=== PATIENT | female | born 1955 | race Caucasian/White ===

== ENCOUNTER → 2016-05-18 | Outpatient (CLI) | payer OTHER ==
[~2016-05-18] MED LIST: CALCTAB5 PO; FLUO40CA8 PO; LRT5 PO
--- NOTE | 2016-05-19 12:32 | MAMMOGRAPHY REPORT ---
BILATERAL DIGITAL SCREENING MAMMOGRAM TOMOSYNTHESIS WITH CAD: 05/18/2016 CLINICAL HISTORY: Routine screening. Patient has no complaints. TECHNIQUE: Breast tomosynthesis in addition to standard 2D mammography was performed. Current study was also evaluated with a Computer Aided Detection (CAD) system. COMPARISON: Comparison is made to exams dated: 03/12/2015 mammogram, 02/27/2014 mammogram, 3 mammogram, 02/15/2013 mammogram, 12/23/2011 mammogram, and 07/01/2010 mammogram - [facility]. BREAST COMPOSITION: The tissue of both breasts is almost entirely fatty. FINDINGS: The grouped coarse heterogeneous microcalcifications in the upper outer far posterior left breast have coarsened comparing back to the 2011 mammogram, confirming benignity. No new suspiciou s mass, architectural distortion or cluster of microcalcifications is seen. IMPRESSION: ACR BI-RADS CATEGORY 1: NEGATIVE There is no mammographic evidence of malignancy. A 1 year screening mammogram is recommended. The p atient will receive written notification of the results. Approximately 10% of breast cancers are not detected with mammography. A negative mammographic repor t should not delay biopsy if a clinically suggestive mass is present. Maeve Liz M.D. ay/:05/18/2016 16:17:52 Oyster Picker: Rhiannon MAX)([place]), [facility] letter sent: Normal 1/2 BI-RADS Code: ACR BI-RADS Category 1: Negative
== END | disposition home or self-care (01) ==
LOC: C.MAMM 12:38
PROVIDERS: ATTEND Family Medicine
DX: Z12.31 Encounter for screening mammogram for malignant neoplasm of breast (principal)

== ENCOUNTER → 2017-06-16 | Outpatient (CLI) | payer OTHER ==
--- NOTE | 2017-06-16 15:05 | MAMMOGRAPHY REPORT ---
BILATERAL DIGITAL SCREENING MAMMOGRAM TOMOSYNTHESIS WITH CAD: 06/16/2017 CLINICAL HISTORY: Routine screening. Patient has no complaints. TECHNIQUE: Breast tomosynthesis in addition to standard 2D mammography was performed. Current study was also evaluated with a Computer Aided Detection (CAD) system. COMPARISON: Comparison is made to exams dated: 05/18/2016 mammogram, 03/12/2015 ultrasound, 03/12/2015 m ammogram, 02/27/2014 mammogram, 02/23/2013 mammogram, and 02/15/2013 mammogram - [facility]. BREAST COMPOSITION: The tissue of both breasts is almost entirely fatty. FINDINGS: No suspicious masses, calcifications, or areas of architectural distortion are noted in ei ther breast. There has been no significant interval change compared to prior exams. Small cluster of benign-appearing calcifications in the left superior posterior breast is not significantly changed d ating back to the 2014 exam. IMPRESSION: ACR BI-RADS CATEGORY 2: BENIGN There is no mammographic evidence of malignancy. A 1 year screening mammogram is recommended. The pa tient will receive written notification of the results. Approximately 10% of breast cancers are not detected with mammography. A negative mammographic report should not delay biopsy if a clinically suggestive mass is present. Elva Hernandez M.D. ah/:06/16/2017 13:53:12 Vice President Of Recruiting: Jewell Souza, [facility] letter sent: Normal 1/2 BI-RADS Code: ACR BI-RADS Category 2: Benign
== END | disposition home or self-care (01) ==
LOC: C.MAMM 13:18
PROVIDERS: ATTEND Family Medicine
DX: Z12.31 Encounter for screening mammogram for malignant neoplasm of breast (principal)

== ENCOUNTER 2023-01-24 05:06 | Observation (INO) ==
--- NOTE | 2022-12-20 13:03 | PAT Medication Instructions ---
Medication Instructions Date of Service December 20, 2022 Home Medications atorvastatin 20 mg tablet 20 mg PO QAM bupropion HCl 75 mg tablet 75 mg PO QAM calcium carbonate 500 mg-vitamin D3 3.125 mcg (125 unit) tablet 1 tab PO BID cetirizine 10 mg tablet 10 mg PO QAM cholecalciferol (vitamin D3) 125 mcg (5,000 unit) tablet (Vitamin D3) 125 mcg PO QAM fluoxetine 40 mg capsule 40 mg PO QAM multivitamin 1 tab PO QAM pantoprazole 40 mg tablet,delayed release 40 mg PO QAM DO NOT take the morning of surgery calcium carbonate 500 mg-vitamin D3 3.125 mcg (125 unit) tablet 1 tab PO BID cetirizine 10 mg tablet 10 mg PO QAM cholecalciferol (vitamin D3) 125 mcg (5,000 unit) tablet (Vitamin D3) 125 mcg PO QAM multivitamin 1 tab PO QAM Take morning of surgery With a small sip of water, OTHERWISE NOTHING TO EAT OR DRINK AFTER MIDNIGHT: atorvastatin 20 mg tablet 20 mg PO QAM bupropion HCl 75 mg tablet 75 mg PO QAM fluoxetine 40 mg capsule 40 mg PO QAM pantoprazole 40 mg tablet,delayed release 40 mg PO QAM Take evening before surgery calcium carbonate 500 mg-vitamin D3 3.125 mcg (125 unit) tablet 1 tab PO BID Other Notes If you have any questions please call us at [phone] or [phone] or [phone] or [phone]
--- NOTE | 2022-12-22 11:11 | Anesthesiology Consultation ---
Date of Service December 22, 2022 Assessment & Plan (1) Encounter for pre-operative examination: Chart Review Chart Review: Acceptable Risk for Surgery and Patient seen in Pre Admission Testing Pt currently scheduled as 23 hours observation. If surgeon decides to change patient to Same Day Joint, patient would be acceptable risk for TKA, pending patient is motivated, has good support and surgeon's office completes Same Day Joint Program preop requirements. Per PAT appt on 12/22/22, no recent illness/disease exposures, illness related symptoms, or recent illness/disease positive tests. Will leave to surgeon's discretion if preop Covid testing needed History Surgery Operation Date: 01/10/23 08:10 Proposed Procedures p Right Total Knee Arthroplasty - Sheldon Vidal, Height/Weight Height: 5 ft 5 in Weight: 86 kg Allergies Allergy/AdvReac Type Severity Reaction Status Date / Time No Known Allergies Allergy Unknown Verified 12/16/22 11:03 Medications Home Medications Medication Instructions Recorded Confirmed Last Taken atorvastatin 20 mg tablet 20 mg PO QAM 12/16/22 12/16/22 Unknown bupropion HCl 75 mg tablet 75 mg PO QAM 12/16/22 12/16/22 Unknown calcium carbonate 500 mg-vitamin 1 tab PO BID 12/16/22 12/16/22 Unknown D3 3.125 mcg (125 unit) tablet cetirizine 10 mg tablet 10 mg PO QAM 12/16/22 12/16/22 Unknown cholecalciferol (vitamin D3) 125 125 mcg PO QAM 12/16/22 12/16/22 Unknown mcg (5,000 unit) tablet (Vitamin D3) fluoxetine 40 mg capsule 40 mg PO QAM 12/16/22 12/16/22 Unknown multivitamin 1 tab PO QAM 12/16/22 12/16/22 Unknown pantoprazole 40 mg tablet,delayed 40 mg PO QAM 12/16/22 12/16/22 Unknown release Past Medical History Medical History (Updated 12/22/22 @ 20:30 by Loly Jimenez PA-C) Depression History of kidney stones No recent issues HLD (hyperlipidemia) Osteoarthritis PONV (postoperative nausea and vomiting) Severe PONV with 2004 lithotripsy- scop patch used with subsequent surgery with good control of PONV Sleep apnea CPAP Exercise / Class Metabolic Activity II 4-5 Yardwork/Stairs/Walk up hill (one flight of stairs - no chest pain or SOB ) Past Family History Family History Other No family history of adverse response to anesthesia Past Surgical History Surgical History H/O gastric sleeve 07/2022 [facility] [place] History of colonoscopy History of esophagogastroduodenoscopy (EGD) History of lithotripsy History of umbilical hernia repair at age 4 mo Intussusception intestine hx surgical repair at age 12. Past Anesthesia History No Hx of Anesthesia Complications (with exception to lithotripsy in 2004 - severe PONV - had scop patch with gastric sleeve in 07/2022- had no issues with PONV; no issues with scop patch ) and No Family Hx of Anesthesia Complications History of PONV No Hx of Motion Sickness and History of PONV (with 2004 lithotripsy- severe PONV - scop patch ordered for upcoming TKA per patient request ) Social History Smoking Status: Never smoker Do You Dip or Chew Tobacco: No Hx Alcohol Use: Yes alcohol intake frequency: holidays/special occasions only Hx Substance Use: No substance use type: does not use Review of Systems Patient denies chest pain, shortness of breath, dyspnea on exertion, reflux, cough, wheezing, palpitations. No hx of seizures, stroke, NC. No hx of blood clots or blood transfusions Physical Exam Vital Signs VITALS BP 108/73 P 75 TEMP 98.3 SP02 97% RESP 16 Constitutional no acute distress ENMT Mouth: + small oral opening; no TMJ clicking Thyromental Distance: < 3.5 Finger Breadths (3.0) Mallampati Class: III Permanent bridge to side teeth Crowns to molars and side teeth Neck neck extension not limited Respiratory normal respiratory effort; no respiratory distress Auscultation: lungs clear to auscultation bilaterally; no wheezes Cardiovascular Rate/Rhythm: regular rate and regular rhythm Heart Sounds: no murmur Vessels: no carotid bruit Musculoskeletal Spine: no pain with cervical ROM Extremities: extremities normal to inspection Psychiatric Orientation: alert Lab Results Anesthesia Preop Results Results Anesthesia Widget: WBC 7.30 K/ul (4.8-10.8) 12/22/22 Hgb 13.6 g/dl (12.0-16.0) 12/22/22 Hct 40.5 % (37.0-47.0) 12/22/22 Plt 243 K/uL (130-400) 12/22/22 Na 140 mmol/L (136-145) 12/22/22 K 4.9 mmol/L (3.5-5.1) 12/22/22 Cl 104 mmol/L (98-107) 12/22/22 CO2 29 mmol/L (21-32) 12/22/22 BUN 16 mg/dl (6-23) 12/22/22 Creat 0.82 mg/dl (0.6-1.2) 12/22/22 Glucose Level 92 mg/dl (70-99(Fasting)) 12/22/22 PT 11.3 Seconds (9.0-12.0) 12/22/22 PTT 26.8 Seconds (21.0-31.0) 12/22/22 INR 1.0 (0.9-1.1) 12/22/22 Blood Type A Positive 12/22/22 Antibody Screen NEGATIVE 12/22/22 Testing Electrocardiogram Date: 06/25/22 Findings: + NSR @ (78bpm ) Normal EKG per cardio Chest X-Ray Date: 06/25/22 Findings: + NAD FINDINGS: Cardiac mediastinal and hilar silhouettes are within normal limits. Atherosclerosis of the aorta. No pneumothorax, pleural effusion, airspace consolidation or pulmonary edema. Bones appear grossly intact
--- NOTE | 2023-01-06 11:38 | History & Physical Report ---
Date of Service January 06, 2023 Assessment & Plan (1) Right knee DJD: We will proceed with a right total knee arthroplasty. Postoperatively she will be started on aspirin for DVT prophylaxis and kept overnight in the hospital for postop medical management. She plans to use [facility] upon disch arge. History of Present Illness Chief Complaint: Osteoarthritis of the right knee. Primary Care Provider: Keke Haskins DO Patricia is a pleasant 67-year-old female who has been dealing with chronic increasing right knee pain. X-rays have been diagnostic for worsening medial compartmental arthritis of the right knee. She has been seeing Dr. Real who has tried injections of her knee. The injections do not help it anymore. She is really struggling. It is keeping her from doing activities she enjoys. After failing conservative treatment, she has elected proceed with a right total knee arthroplasty. Allergies Allergy/AdvReac Type Severity Reaction Status Date / Time No Known Allergies Allergy Unknown Verified 12/16/22 11:03 Home Medications Medication Instructions Recorded Confirmed Type atorvastatin 20 mg tablet 20 mg PO QAM 12/16/22 12/16/22 History bupropion HCl 75 mg tablet 75 mg PO QAM 12/16/22 12/16/22 History calcium carbonate 500 mg-vitamin 1 tab PO BID 12/16/22 12/16/22 History D3 3.125 mcg (125 unit) tablet cetirizine 10 mg tablet 10 mg PO QAM 12/16/22 12/16/22 History cholecalciferol (vitamin D3) 125 125 mcg PO QAM 12/16/22 12/16/22 History mcg (5,000 unit) tablet (Vitamin D3) fluoxetine 40 mg capsule 40 mg PO QAM 12/16/22 12/16/22 History multivitamin 1 tab PO QAM 12/16/22 12/16/22 History pantoprazole 40 mg tablet,delayed 40 mg PO QAM 12/16/22 12/16/22 History release Past Med/Surg History Medical History Depression History of kidney stones No recent issues HLD (hyperlipidemia) Osteoarthritis PONV (postoperative nausea and vomiting) Severe PONV with 2005 lithotripsy- scop patch used with subsequent surgery with good control of PONV Sleep apnea CPAP Surgical History H/O gastric sleeve 07/2022 [facility] [place] History of colonoscopy History of esophagogastroduodenoscopy (EGD) History of lithotripsy History of umbilical hernia repair at age 4 mo Intussusception intestine hx surgical repair at age 12. Family History Other No family history of adverse response to anesthesia Social History Smoking Status: Never smoker Second Hand Exposure: No; Do You Dip or Chew Tobacco: No; Hx Alcohol Use: Yes Hx Substance Use: No Preferred Language: Burkinan Communication Ability: Effective Service Assistant Required: No Beliefs That Will Affect Care: None Current Living Situation: Spouse Feels Safe at Home: Yes Assistive Devices: Glasses Review of Systems All systems reviewed & are unremarkable except as noted in HPI & below. Physical Exam Physical examination of the right knee shows a slight varus deformity. She is range of motion 0 to 120 degrees. She has pain of the distal medial femoral condyle and of the medial joint line.. Constitutional WD/WN, vitals as above Eyes PERRL, conjunctivae normal, anicteric sclerae ENMT external ear and nose normal, oropharynx normal Neck trachea midline, no thyromegaly Respiratory normal respiratory effort, lungs clear to auscultation Cardiovascular RRR, no murmur, no edema Gastrointestinal (Abdomen) normal bowel sounds, soft, nontender, no hepatosplenomegaly Skin no rashes, warm and dry Psychiatric A+Ox3, euthymic affect Results & Data Results & Data Laboratory Results . Diagnostic Findings X-rays of the right knee show advanced osteoarthritis with joint space narrowing, osteophyte formation, and [id number] tubulation. PG Care Time/CCT Total # of Minutes Spent Total Time Spent with Patient: Total time spent is greater than 50% in coordination of care (as documented) at patient's floor/unit and/or counseling patient: Coding Level of Care Code None Diagnoses Right knee DJD M17.11
--- NOTE | 2023-01-20 08:06 | History & Physical Report ---
Date of Service January 20, 2023 Assessment & Plan (1) Right knee DJD: We will proceed with a right total knee arthroplasty. Postoperatively she will be started on aspirin for DVT prophylaxis and kept overnight in the hospital for postop medical management. She plans to go have [facility] to her use upon discharge. History of Present Illness Chief Complaint: Osteoarthritis of the right knee. Primary Care Provider: Keke Haskins DO Patricia is a pleasant 67-year-old female who has been dealing with chronic increasing right knee pain. X-rays have been diagnostic for worsening medial compartmental arthritis of the right knee. She has been seeing Dr. Real who has tried injections of her knee. The injections do not help it anymore. She is really struggling. It is keeping her from doing activities she enjoys. After failing conservative treatment, she is elected proceed with a right total knee arthroplasty. Allergies Allergy/AdvReac Type Severity Reaction Status Date / Time No Known Allergies Allergy Unknown Verified 12/16/22 11:03 Home Medications Medication Instructions Recorded Confirmed Type atorvastatin 20 mg tablet 20 mg PO QAM 12/16/22 12/16/22 History bupropion HCl 75 mg tablet 75 mg PO QAM 12/16/22 12/16/22 History calcium carbonate 500 mg-vitamin 1 tab PO BID 12/16/22 12/16/22 History D3 3.125 mcg (125 unit) tablet cetirizine 10 mg tablet 10 mg PO QAM 12/16/22 12/16/22 History cholecalciferol (vitamin D3) 125 125 mcg PO QAM 12/16/22 12/16/22 History mcg (5,000 unit) tablet (Vitamin D3) fluoxetine 40 mg capsule 40 mg PO QAM 12/16/22 12/16/22 History multivitamin 1 tab PO QAM 12/16/22 12/16/22 History pantoprazole 40 mg tablet,delayed 40 mg PO QAM 12/16/22 12/16/22 History release Past Med/Surg History Medical History Depression History of kidney stones No recent issues HLD (hyperlipidemia) Osteoarthritis PONV (postoperative nausea and vomiting) Severe PONV with 2005 lithotripsy- scop patch used with subsequent surgery with good control of PONV Sleep apnea CPAP Surgical History H/O gastric sleeve 07/2022 [facility] [place] History of colonoscopy History of esophagogastroduodenoscopy (EGD) History of lithotripsy History of umbilical hernia repair at age 4 mo Intussusception intestine hx surgical repair at age 12. Family History Other No family history of adverse response to anesthesia Social History Smoking Status: Never smoker Second Hand Exposure: No; Do You Dip or Chew Tobacco: No; Hx Alcohol Use: Yes Hx Substance Use: No Preferred Language: Khmer Communication Ability: Effective Safety Assistant Required: No Beliefs That Will Affect Care: None Current Living Situation: Spouse Feels Safe at Home: Yes Assistive Devices: Glasses Review of Systems All systems reviewed & are unremarkable except as noted in HPI & below. Physical Exam On physical examination the right knee, she has tenderness palpation of the distal medial femoral condyle and over the medial joint line. She has good range of motion from 0 to 120 degrees.. Constitutional WD/WN, vitals as above Eyes PERRL, conjunctivae normal, anicteric sclerae ENMT external ear and nose normal, oropharynx normal Neck trachea midline, no thyromegaly Respiratory normal respiratory effort, lungs clear to auscultation Cardiovascular RRR, no murmur, no edema Gastrointestinal (Abdomen) normal bowel sounds, soft, nontender, no hepatosplenomegaly Skin no rashes, warm and dry Psychiatric A+Ox3, euthymic affect Results & Data Results & Data Laboratory Results . Diagnostic Findings X-rays of the right knee show advanced osteoarthritis with joint space narrowing, osteophyte formation, and [id number] tubulation. PG Care Time/CCT Total # of Minutes Spent Total Time Spent with Patient: Total time spent is greater than 50% in coordination of care (as documented) at patient's floor/unit and/or counseling patient: Coding Level of Care Code None Diagnoses Right knee DJD M17.11
[~2023-01-24 05:06] MED LIST changes: +ACETAMINOPHEN 500 MG TAB PO SCH; -CALCTAB5 PO; +FAMOTIDINE 20 MG TAB PO SCH; -FLUO40CA8 PO; +GABAPENTIN 300 MG CAP PO SCH; +LR 500ML BOLUS, THEN 15ML/HR IV SCH; +LR 60ML/HR IV SCH; -LRT5 PO; +ORTHO JOINT MIX INFIL SCH; +TRANEXAMIC ACID 1,000 MG **IV Intra-op IV SCH; +TRANEXAMIC ACID 1,000 MG **IV Pre-op IV SCH; +ceFAZolin 2000MG 2,000 MG/15 ML SYR IV SCH; +dexAMETHasone 4 MG TAB PO SCH
[2023-01-24] MEDS ORDERED: LR 500ML BOLUS, THEN 15ML/HR IV SCH (06:00)
[2023-01-24] MEDS ORDERED: TRANEXAMIC ACID 1,000 MG **IV Intra-op IV SCH (06:00)
[2023-01-24] MEDS ORDERED: ceFAZolin 2000MG 2,000 MG/15 ML SYR IV SCH (06:00)
[2023-01-24] MEDS ORDERED: Ketorolac (*for OR use only*) 30 MG, dexAMETHasone 4 MG, KETAMINE HCL (**OR use only) 1... INFIL SCH (06:00)
[2023-01-24] MEDS ORDERED: TRANEXAMIC ACID 1,000 MG **IV Pre-op IV SCH (06:00)
[2023-01-24] MEDS ORDERED: FAMOTIDINE 20 MG TAB PO SCH (06:00)
[2023-01-24] MEDS ORDERED: GABAPENTIN 300 MG CAP PO SCH (06:00)
[2023-01-24] MEDS ORDERED: ACETAMINOPHEN 500 MG TAB PO SCH (06:00)
[2023-01-24] MEDS ORDERED: SCOPOLAMINE 1 MG TDSY TD SCH (06:00)
[2023-01-24] MEDS ORDERED: LR 60ML/HR IV SCH (06:00)
[2023-01-24] MEDS ORDERED: dexAMETHasone 4 MG TAB PO SCH (06:00)
[2023-01-24] MEDS ORDERED: MIDAZOLAM HCL 1 MG/ML 2ML VIAL ONE (06:32)
[2023-01-24] MEDS ORDERED: ONDANSETRON INJ 2 MG/ML 2 ML VIAL ONE (06:32)
[2023-01-24] MEDS ORDERED: PROPOFOL IV EMULSION 10 MG/ML 20 ML VIAL IV ONE (06:32)
[2023-01-24] MEDS ORDERED: BUPIVACAINE 0.5 % 5 MG/1 ML PF 10ML VIAL ONE (06:33)
[2023-01-24] MEDS ORDERED: fentaNYL citrate PF 100 MCG/2 ML VIAL ONE (06:33)
[2023-01-24] MEDS ORDERED: ROPIVACAINE 0.5% 5 MG/ML 30 ML VIAL ONE (06:33)
[2023-01-24] MEDS ORDERED: ONDANSETRON INJ 2 MG/ML 2 ML VIAL IV PRN ×2 (06:35→10:22)
[2023-01-24] MEDS ORDERED: fentaNYL citrate PF 100 MCG/2 ML VIAL IV PRN (06:35)
[2023-01-24] MEDS ORDERED: ATROPINE SULFATE 0.1 MG/ML 10ML SYR IV PRN (06:35)
[2023-01-24] MEDS ORDERED: ePHEDrine sulfate 50 MG/ML AMP IV PRN (06:35)
[2023-01-24] MEDS ORDERED: ORTHO JOINT ANESTHETIC ONE (06:38)
--- NOTE | 2023-01-24 06:43 | History & Physical Bridge Note ---
Date of Service January 24, 2023 History & Physical Bridge Note I have examined the patient, reviewed the History & Physical and in the interval since the performance of the History & Physical I have noted the following changes of clinical significance: no changes noted
[2023-01-24] MEDS ORDERED: CHECK SCOPOLAMINE PATCH PLACEMENT SCH (08:00)
--- NOTE | 2023-01-24 08:08 | Operative Report ---
PG Post Operative Report Pre & Post Diagnosis Operation Date: 01/24/23 07:00 Pre-Op Diagnosis: Right Knee Osteoarthritis Post-Op Diagnosis: Right Knee Osteoarthritis I identified the patient and participated in the time-out.: Yes Procedure Operation Date: 01/24/23 07:00 Actual Procedures p Right Total Knee Arthroplasty(Right) - Sheldon Vidal DO Surgeon Sheldon Vidal DO Marine Painter Sheldon Hunter PA-C Estimated Blood Loss 30 Findings Consistent with Post-Op Diagnosis Specimens Right femoral tibial bone Description of Procedure Implants used: I used a Edouard Persona total knee arthroplasty system with a size 8 standard femur, E tibia, 31 oval patella, and a size 12 medial congruent polyethylene bearing. All components were cemented in place with Biomet cement. Patricia arrived [facility] for the above procedure. She was seen in the preoperative holding area and the operative extremity was identified and signed. She was given a preoperative antibiotic, TXA, a spinal anesthetic and an adductor nerve block. She was taken back to the operating room and laid on the table in supine position. She was given basic sedation. The operative knee was then prepped and draped in sterile fashion. A timeout was done, and the patient and the operative extremity was properly identified. A midline incision was made directly over the patella. Dissection was taken down to the extensor mechanism. A midvastus arthrotomy was used. The medial retinaculum was released and the fat pad was mostly excised. The knee was flexed and the ACL, PCL, and meniscus were removed. A drill was sent down the center of the femoral canal followed by an intramedullary amauri. Off that amauri a distal femoral cutting block was placed. 9 mm was resected off the distal femur at 5 of valgus. A posterior referencing AP sizing guide was then placed on the distal femur. The femur measured to be a size 8. 2 drill holes were placed in 3 of external rotation. A 4-in-1 cutting block was then impacted into place. Anterior, posterior, and chamfer cuts were then made. The proximal tibia was then exposed. An external tibial alignment guide was placed. A tibial cut guide was then anchored in place and the proximal tibia was then resected. The posterior aspect of the knee was then opened up and any additional meniscus fragments and osteophytes were removed. The tibia measured to be a size E. The tibial plate was then placed in the appropriate rotation and the tibia was drilled and punched. Trial components were then placed. I used a size 12 medial congruent polyethylene insert. The knee was brought through a full range of motion and felt to be stable. The peg holes for the femoral component were then drilled. The patella was then everted and 9 mm was resected off the posterior aspect of the patella. The patella measured to be a size 31 oval. 3 peg holes were then drilled. A trial patella was placed. The knee was once again brought through a full range of motion and felt to be stable. Trial components were then removed. The surrounding soft tissues were injected with 100 cc of an orthopedic pain control cocktail. All components were then cemented into place with Biomet cement. The final polyethylene insert was then snapped into place. Once cement was dry the tourniquet was deflated. Hemostasis was obtained. A dilute betadyne lavage was then done for 3 minutes. The joint was then irrigated with normal saline solution. The midvastus arthrotomy was then closed with #1 Vicryl suture. The skin was closed with 2-0 Vicryl, 3-0V lock suture, and sathya. A soft compressive dressing was placed. She was then transferred to a hospital bed and taken to the postanesthesia care unit in stable condition. She tolerated the procedure well. Sheldon Hunter PA-C, was present for the entire procedure. He was critical for patient positioning, prepping, draping, retraction exposure, wound closure and application of sterile dressing. I attest to the content of the Intraoperative Record and any orders documented therein. Any exceptions are noted below.
--- NOTE | 2023-01-24 09:39 | XRay Report ---
XR knee RT 1 or 2V routine CLINICAL HISTORY: Surgical Post Op TECHNIQUE: 2 views of the right knee were obtained. Comparison: None available at the time of this dictation. FINDINGS: Patient is status post total knee arthroplasty with expected postsurgical changes including soft tiss ue swelling and subcutaneous emphysema. No periarticular lucency or hardware fracture is seen. IMPRESSION: Expected postoperative appearance status post placement of total knee arthroplasty. ACT 112: Negative or not required by law. Electronically signed by: Pro Hubbard M.D. 01/24/2023 9:37 AM
[2023-01-24] MEDS ORDERED: METOCLOPRAMIDE HCL INJ 5 MG/ML 2 ML VIAL IV PRN (10:22)
[2023-01-24] MEDS ORDERED: NALOXONE HCL 0.4 MG/1 ML VIAL/CARP IV PRN (10:22)
[2023-01-24] MEDS ORDERED: bisacodyL 10 MG SUPP PR PRN (10:22)
[2023-01-24] MEDS ORDERED: MAGNESIUM HYDROXIDE SUSP 30 ML UDC PO PRN (10:22)
[2023-01-24] MEDS ORDERED: HYDROmorphone INJ 0.5 MG/0.5 ML SYR IV PRN (10:22)
[2023-01-24] MEDS ORDERED: oxyCODONE HCL IR 5 MG TAB (IMMEDIATE RELEASE) PO PRN (10:22)
[2023-01-24] MEDS: SODIUM CHLORIDE 0.9% 1,000 ML IV SCH ×2 (10:46→23:09)
--- NOTE | 2023-01-24 11:01 | Anesthesiology Progress Note ---
Date of Service January 24, 2023 Anesthesia Post Procedure Vital Signs Vital Signs: Temp Pulse Pulse Resp BP BP Pulse Ox 01/24/23 10:10 98.1 F 72 16 98/66 L 95 01/24/23 10:38 66 16 96/66 L 94 01/24/23 09:55 68 14 105/81 97 01/24/23 09:45 97.9 F 67 13 110/69 97 01/24/23 09:35 68 15 104/68 97 01/24/23 09:25 66 14 107/68 97 01/24/23 09:15 97.0 F L 66 16 104/67 97 01/24/23 09:05 71 20 115/64 92 01/24/23 08:55 68 19 108/70 97 01/24/23 08:45 62 16 123/75 100 01/24/23 08:35 68 14 108/69 99 01/24/23 08:29 98.1 F 75 12 107/68 96 01/24/23 05:29 01/24/23 05:29 98.2 F 80 18 132/85 96 O2 Del Method O2 Flow Rate 01/24/23 10:10 Room Air 01/24/23 10:38 Room Air 01/24/23 09:55 Nasal Cannula 2 01/24/23 09:45 Nasal Cannula 2 01/24/23 09:35 Nasal Cannula 2 01/24/23 09:25 Nasal Cannula 2 01/24/23 09:15 Nasal Cannula 2 01/24/23 09:05 Room Air 01/24/23 08:55 Oxymask 3 01/24/23 08:45 Oxymask 4 01/24/23 08:35 Oxymask 6 01/24/23 08:29 Oxymask 6 01/24/23 05:29 Room Air, CPAP 01/24/23 05:29 Room Air, CPAP Pain Intensity Right Knee: Pain Intensity: 2 Transfer of Care Handoff Completed per policy Notes Mental Status: alert / awake / arousable and participated in evaluation Patient Amnestic to Procedure: Yes Nausea / Vomiting: adequately controlled Pain: adequately controlled Airway Patency, RR, SpO2: stable & adequate BP & HR: stable & adequate Hydration State: stable & adequate Neuraxial Anesthesia: was administered and sensory block is resolving Anesthetic Complications: no major complications apparent and Pt Satisfied with anesthetic care
[2023-01-24] MEDS: buPROPion HCl 75 MG TABLET PO SCH (12:08)
[2023-01-24] MEDS: CETIRIZINE HCL 10 MG TABLET PO SCH (12:08)
[2023-01-24] MEDS: DOCUSATE SODIUM 100 MG CAP PO SCH ×2 (12:08→20:49)
[2023-01-24] MEDS: MULTIVITAMIN TAB PO SCH (12:08)
[2023-01-24] MEDS: KETOROLAC TROMETHAMINE 15 MG/ML VIAL IV SCH ×3 (12:08→23:03)
[2023-01-24] MEDS: FLUoxetine HCL 20 MG CAP PO SCH (12:08)
[2023-01-24] MEDS: ASPIRIN 81 MG ECTAB PO SCH ×2 (12:08→20:49)
[2023-01-24] MEDS: ATORVASTATIN 20 MG TAB PO SCH (12:09)
[2023-01-24] MEDS: ACETAMINOPHEN 500 MG TAB PO SCH ×2 (13:00→20:50)
[2023-01-24] MEDS: ceFAZolin 2000MG 2,000 MG/15 ML SYR IV SCH ×2 (15:26→23:02)
[2023-01-24] MEDS ORDERED: SENNA 8.6 MG TAB PO SCH (21:00)
[2023-01-25] MEDS: KETOROLAC TROMETHAMINE 15 MG/ML VIAL IV SCH (04:26)
[2023-01-25] MEDS: ACETAMINOPHEN 500 MG TAB PO SCH (04:27)
--- NOTE | 2023-01-25 06:59 | Orthopedic Progress Note ---
Date of Service January 25, 2023 Assessment & Plan (1) Status post right knee replacement: Overall she is doing very well. She is not having much pain in the right knee. She will be seen by physical therapy today for ambulation and range of motion exercises. She is on aspirin for DVT prophylaxis. She can be discharged home later today. She will follow-up orthopedics in 2 weeks. Subjective Lupe was seen and examined at bedside this morning. Overall she is doing very well. She is not having much pain in the right knee. She has been up and ambulating into the hallways. She has no complaints.. Review of Systems All systems reviewed & are unremarkable except as noted in HPI & below. Physical Exam On physical examination of the right knee, the dressing is clean and dry. Her leg is out full extension. She has active dorsiflexion plantarflexion of her right ankle.. Results & Data Results & Data Laboratory Results . Diagnostic Findings Postoperative x-rays of the right knee show the prosthesis to be in anatomic alignment without any evidence of fracture complication, or loosening.. PG Care Time/CCT Total # of Minutes Spent Total Time Spent with Patient: Total time spent is greater than 50% in coordination of care (as documented) at patient's floor/unit and/or counseling patient: Coding Level of Care Code 24546 Post Operative Follow-Up Diagnoses Status post right knee replacement Z96.651
--- NOTE | 2023-01-25 07:00 | Discharge Summary ---
Date of Service January 25, 2023 Admission HPI (Per Admitting) Patricia is a pleasant 67-year-old female who has been dealing with chronic increasing right knee pain. X-rays have been diagnostic for worsening medial compartmental arthritis of the right knee. She has been seeing Dr. Real who has tried injections of her knee. The injections do not help it anymore. She is really struggling. It is keeping her from doing activities she enjoys. After failing conservative treatment, she is elected proceed with a right total knee arthroplasty. Admission Exam (Per Admitting) On physical examination the right knee, she has tenderness palpation of the dis nathan medial femoral condyle and over the medial joint line. She has good range of motion from 0 to 120 degrees.. Principal Diagnosis Same as "Discharge Diagnosis" noted below under Discharge Instructions. Discharge Exam On physical examination of the right knee, the dressing is clean and dry. Her leg is out full extension. She has active dorsiflexion plantarflexion of her right ankle.. Discharge Data Procedures Performed Operation Date: 01/24/23 07:00 Actual Procedures p Right Total Knee Arthroplasty(Right) - Sheldon Vidal DO Ordered Studies 01/24/23 05:00 US - OR guided needle placemen Routine Hospital Course (1) Status post right knee replacement: On January 24, 2023 Lupe arrived at [facility] and underwent a right knee replacement without complication. She had a spinal anesthetic. Postoperatively she was started on aspirin for DVT prophylaxis and transferred to the general orthopedic floors. Her hospital course was uneventful. On postop day #1, her vital signs were stable and her pain was well controlled. She was able to participate well with physical therapy doing ambulation and range of motion exercises. She was then discharged home. She will follow with orthopedics in 2 weeks. PG Care Time/CCT Total # of Minutes Spent Total Time Spent with Patient: Total time spent is greater than 50% in coordination of care (as documented) at patient's floor/unit and/or counseling patient: Discharge Plan Discharge Items Patient Disposition: Home - Home Health Services Reason For Visit: Right Knee Osteoarthritis Discharge Diagnosis: Right knee replacement Activity: Per Instructions section Non-emergency contact: Surgeon Call non-emergency contact if: your wound has increased redness and your wound has increased drainage Follow-up/Referrals: Keke Haskins DO [Primary Care Provider] - Diet: Regular Addtl Attending Provider Instructions: Activity and Therapy Recommendations: * If you are using [facility] then therapy will be provided at your home until they feel you have accomplished all of your goals. * If you are using [facility] then Physical Therapy will be provided until they feel you are ready to start Outpatient Physical Therapy. * If you are not using home therapy then Outpatient Physical Therapy should start about 3-5 days from your day of surgery. Therapy will last about 6-10 weeks * It is important not to put a pillow under your knee when you are relaxing or sleeping. It is just as important to make sure you are getting your knee perfe ctly straight as it is to regain your knee bend. * You were shown a series of exercises in the hospital. Do these exercises three times each day including the exercises you were shown in physical therapy. * Get up and walk several times each day. For the first four weeks, try not to stand or walk for more than one hour at a time. If you do stand or walk for more than one hour, you will not hurt anything, but your leg will likely swell. * As you feel comfortable, you may change from the walker or crutches to a cane and then to independent walking. Medications: * Narcotic You will likely be sent home from the hospital with a prescription for the narcotic pain medication that worked best throughout your stay. * Aspirin Most patients will be required to take Aspirin 81mg twice a day for 6 weeks after surgery. This is obtained [id number] and a prescription is not necessary. * Other medications may be prescribed for specific circumstances. If you have any questions, please call the office at . * Resume previous home medications unless otherwise instructed TEDs/Elastic Stockings: The white elastic stockings help limit swelling and prevent blood clots from forming in your legs.~ The more you wear them, the more they work. Wear them for six weeks. Dressing Care: The dressing can be changed after physical therapy on postop day #1. Daily dry dressing changes for a few days, especially if the incision is still draining some. If the incision is not draining then you may leave the sathya open to air. If there is a little bit of drainage or if the sathya are getting stuck on your clothing then cover the incision with a dry dressing. The sathya will be removed at your 2 week follow-up appointment. Showering: You may shower 5 days from the day of surgery as long as the incision is no longer draining. You may shower with the sathya exposed. Let soapy water run over the sathya and pat them dry. Do not scrub or soak the incision. Things To Watch For: * Drainage from the incision site that occurs more than one week after your surgery. * Increased redness at the incision site. * Fever above 102 degrees Fahrenheit. * Unusual chest pain or shortness of breath. * Call [facility] at with any of the above problems Follow-Up Visit: Follow-up with Dr. Vidal's PA (Sheldon Hunter) 2-3 weeks after your day of surgery. He will remove your sathya and answer any questions. If you have any additional questions or concerns, Dr Vidal is usually in the office at the same time and will be available An appointment was probably scheduled when you signed-up for surgery in the office. If you have any questions call Office Instructions: More detailed instructions as well as Frequently Asked Questions were provided in a folder by our office when you signed-up for surgery. Please review these instructions when you get home. If you have any further questions or concerns, please feel free to call the office at [phone] Pending Studies at Discharge: No Stand-Alone Forms: My [facility], Smoking Cessation Medications and DC Order Prescriptions: New oxycodone 5 mg Tablet 5 mg PO Q4H PRN (Reason: pain) Qty: 30 0RF aspirin 81 mg Tablet,Delayed Release (Dr/Ec) 81 mg PO BID 42 Days Qty: 84 0RF Continued multivitamin Tablet 1 tab PO QAM fluoxetine 40 mg Capsule 40 mg PO QAM atorvastatin 20 mg Tablet 20 mg PO QAM cetirizine 10 mg Tablet 10 mg PO QAM pantoprazole 40 mg Tablet,Delayed Release (Dr/Ec) 40 mg PO QAM bupropion HCl 75 mg Tablet 75 mg PO QAM calcium carbonate-vitamin D3 [Calcium 500 + D (D3)] 500 mg-3.125 mcg (125 unit) Tablet 1 tab PO BID cholecalciferol (vitamin D3) [Vitamin D3] 125 mcg (5,000 unit) Tablet 125 mcg PO QAM Admission Data Admit Date/Time: 01/24/23 08:34 Attending Provider: Sheldon Vidal Admit Provider: Sheldon Vidal Primary Care Provider: Keke Haskins Other Providers: [facility],Home Health
[2023-01-25] MEDS: ASPIRIN 81 MG ECTAB PO SCH (07:43)
[2023-01-25] MEDS: FLUoxetine HCL 20 MG CAP PO SCH (07:43)
[2023-01-25] MEDS: MULTIVITAMIN TAB PO SCH (07:43)
[2023-01-25] MEDS: CETIRIZINE HCL 10 MG TABLET PO SCH (07:44)
[2023-01-25] MEDS: ATORVASTATIN 20 MG TAB PO SCH (07:44)
[2023-01-25] MEDS: buPROPion HCl 75 MG TABLET PO SCH (07:44)
[2023-01-25] MEDS: DOCUSATE SODIUM 100 MG CAP PO SCH (07:44)
[2023-01-25] MEDS ORDERED: dexAMETHasone 4 MG TAB PO SCH (08:00)
== END 2023-01-25 10:34 | disposition home health service (06) ==
LOC: 3E 05:06 → ASU 05:06